=== PATIENT | female | born 2000 | race Caucasian/White ===

== ENCOUNTER 2023-02-13 16:22 | Outpatient (CLI) | payer OTHER, SELFPAY | END 2023-02-13 16:23 | disposition home or self-care (01) | LOC: NFLDREF 02-14 06:34 | PROVIDERS: Visit Provider Dermatology | DX: Z79.899 Other long term (current) drug therapy (principal); L70.0 Acne vulgaris | CPT/HCPCS: 80048; 80053; 80061 ==

== ENCOUNTER 2023-03-13 08:02 | Outpatient (CLI) | payer OTHER, SELFPAY | END 2023-03-13 08:03 | disposition home or self-care (01) | PROVIDERS: Visit Provider Dermatology | DX: L70.9 Acne, unspecified (principal); Z79.899 Other long term (current) drug therapy | CPT/HCPCS: 80061; 80076 ==